=== PATIENT | female | born 1940 | race Caucasian/White ===

== ENCOUNTER 2017-11-16 15:21 | Emergency (ER) | payer OTHER ==
[~2017-11-16] VITALS: Ht 157.5 cm; Wt 57.2 kg
[~2017-11-16 15:21] MED LIST: BISOPROLOL-HCT1 EAC4 PO; BISOPROLOL-HCT1 EACH PO; Bactrim,Septra DS 80 PO; CELEBREX200 MG PO; CITALOPRAM HBR20 MG PO; CLOBETASOL PROP60 GM TP; Coreg PO; Ecotrin PO; Feosol PO; LIPITOR5 MG PO; Lipitor PO; PRAVASTATIN SOD40 MG PO; SENOKOT S,PE1 TABLET PO; SERTRALINE HCL50 MG PO; SLEEPING PILL PO; Vicodin,Norco 5/325 PO
[2017-11-16 16:04] LABS: HEMATOCRIT 39.5 % (36.0-46.0); MCH 32.2 PG (29.0-34.0); MCHC 34.7 G/DL (30.0-36.0); MCV 92.7 FL (83-99); MEAN PLAT.VOLUME 10.7 uM^3 (9.5-12.4); PLATELET COUNT 220 K/uL (156-360); RBC DIS.WIDTH-CV 13.2 % (11.8-14.6); RBC DIS.WIDTH-SD 44.7 % (39-53); RED BLOOD COUNT 4.26 M/uL (3.80-5.20)
[2017-11-16 16:13] LABS: CHLORIDE 101 mEq/L (99-109); POTASSIUM 3.8 mEq/L (3.7-5.4); SODIUM 132 mEq/L (136-147)
[2017-11-16 16:15] LABS: GLUCOSE 115 mg/dL (70-99)
[2017-11-16 16:16] LABS: ANION GAP 12 MEQ/L (2-14)
[2017-11-16 16:17] LABS: TOTAL BILIRUBIN 0.7 mg/dL (0.0-1.0)
[2017-11-16 16:18] LABS: ALKALINE PHOSPHATASE 68 IU/L (3-129)
[2017-11-16 16:19] LABS: GFR ESTIMATE (CALCULATED) 39 mL/min/
[2017-11-16 16:20] LABS: UREA NITROGEN (BUN) 22 mg/dL (9-23)
[2017-11-16 16:22] LABS: LIPASE 6 U/L (1.0-51.0)
[2017-11-16 19:36] LABS: ADD MIUA? YES; BILIRUBIN NEGATIVE; BLOOD NEGATIVE; COLOR YELLOW ((YELLOW)); GLUCOSE (STRIP) NEGATIVE; KETONES 5; LEUKOCYTES NEGATIVE; NITRITE NEGATIVE; PROTEIN (STRIP) 30; SPECIFIC GRAVITY 1.017 (1.000-1.030); UROBILINOGEN 0.2 MG/DL (0.2-1.0)
[2017-11-16 20:08] LABS: BACTERIA 1+ /HPF; EPITHELIAL CELLS 1+ /HPF; MUCUS 4+ /LPF; RED BLOOD CELLS 0-5 /HPF (0-5); WHITE BLOOD CELLS 0-5 /HPF (0-5)
[2017-11-16] MEDS ORDERED: ZOFRAN ODT4 MG PO (20:11)
[2017-11-16 20:20] VITALS: BP 118/76
== END 2017-11-16 20:39 | disposition home or self-care (01) ==
LOC: EME 15:21
PROVIDERS: Nurse Practitioner Family
DX: E86.0 Dehydration (principal); R11.2 Nausea with vomiting, unspecified; G30.9 Alzheimer's disease, unspecified; F02.80 Dementia in other diseases classified elsewhere, unspecified severity, without behavioral disturbance, psychotic disturbance, mood disturbance, and anxiety; Z91.81 History of falling; K21.9 Gastro-esophageal reflux disease without esophagitis; E78.5 Hyperlipidemia, unspecified; F41.9 Anxiety disorder, unspecified; F32.9 Major depressive disorder, single episode, unspecified; Z86.73 Personal history of transient ischemic attack (TIA), and cerebral infarction without residual deficits; Z96.651 Presence of right artificial knee joint
CPT/HCPCS: 71020; 80053; 81003; 83605; 83690; 85027; 87040; 93005; 99281; 99285; J2405; J7030